=== PATIENT | female | born 1960 | race Caucasian/White ===

== ENCOUNTER 2017-11-17 11:44 | Emergency (ER) | payer BC, OTHER ==
[~2017-11-17] VITALS: Ht 157.5 cm; Wt 95.3 kg
--- NOTE | ~2017-11-17 | EKG ---
[place] [address] [employer] [place] [address] ELECTROCARDIOGRAM REPORT Name: AMANUEL FIELDS Room #: DEP Dayne#: [id number] Admission: 11/17/17 Attend Phys: Discharge: 11/17/17 Date of : 56 Report #: [id number] THIS REPORT FOR: //name// [facility] ED Test Date: 2017-11-17 Test Time: 11:52:49 Pat Name: AMANUEL FIELDS Department: Room: Gender: F [employer] Sales Representative: [facility] : 1960 Requested By: Vick Agee Order Number: [id number] MD: Rogelio Diaz Measurements Intervals [place] Rate: 59 P: 6 AL: 145 QRS: 35 QRSD: 86 T: 44 QT: 432 QTc: 428 Interpretive Statements Sinus rhythm No significant abnormality No previous ECG available for comparison Electronically Signed On 11-18-2017 7:47:57 [employer] by Rogelio Diaz [email or web address] <ELECTRONICALLY SIGNED> By: Rogelio Diaz MD, [facility] 11/18/17 0747 1152 1152 Rogelio Diaz MD, FACC /EPI
[2017-11-17 12:35] LABS: ABSOLUTE NEUTROPHILS 3.7 thou/uL (1.4-8.2); BASOPHILS 0.9 % (0.0-2.0); EOSINOPHILS 1.6 % (0.0-3.0); HEMATOCRIT 43.5 % (37.0-47.0); HEMOGLOBIN 14.6 gm/dL (12.0-15.0); LYMPHOCYTES 37.8 % (24.0-44.0); MCHC 33.6 g/dL (28.0-37.0); MCV 92.1 fL (80.0-100.0); MONOCYTES 9.3 % (1.0-8.0); PLATELET COUNT 260 thou/uL (150-400); POLYS 50.4 % (36.0-66.0); RBC 4.72 mil/uL (4.20-5.00); RDW 12.6 % (10.5-14.5); WBC 7.2 thou/uL (4.0-11.0)
[2017-11-17 12:38] LABS: ANION GAP 9 mmol/L (7-16); BUN 16 mg/dL (7-18); CALCIUM 9.4 mg/dL (8.5-10.1); CHLORIDE 101 mmol/L (98-107); CO2 25 mmol/L (21-32); GLUCOSE 92 mg/dL (74-106); POTASSIUM 4.2 mmol/L (3.5-5.1); SODIUM 135 mmol/L (136-145)
[2017-11-17 12:46] LABS: TROPONIN-I < 0.04 ng/mL (<0.06)
[2017-11-17] MEDS ORDERED: LISINOPRIL10 MG PO (13:45)
[2017-11-17] MEDS ORDERED: ASPIR 8181 M1 PO (13:46)
[2017-11-17] MEDS ORDERED: SENNA-DOCUSATE1 EACH PO (13:53)
[2017-11-17] MEDS ORDERED: NORFLEX100 MG PO (13:53)
[2017-11-17] MEDS ORDERED: NORCO 5-325 TA1 EACH PO (13:53)
[2017-11-17] MEDS ORDERED: NAPROSYN500 MG PO (13:53)
== END 2017-11-17 14:40 | disposition home or self-care (01) ==
LOC: ER 11:44
PROVIDERS: Emergency Medicine
DX: S46.212A Strain of muscle, fascia and tendon of other parts of biceps, left arm, initial encounter (principal); R07.89 Other chest pain; Z88.0 Allergy status to penicillin; X58.XXXA Exposure to other specified factors, initial encounter; Y93.89 Activity, other specified; Y92.89 Other specified places as the place of occurrence of the external cause; Y99.8 Other external cause status